=== PATIENT | male | born 1990 | race African-American/Black ===

== ENCOUNTER 2017-11-20 16:49 | Emergency (ER) | payer SELFPAY ==
[~2017-11-20] VITALS: Ht 172.7 cm; Wt 90.0 kg
[2017-11-20] MEDS ORDERED: IBUPROFEN 800 MG TABLET PO ONE (18:15)
[2017-11-20 20:04] VITALS: BP 117/70
== END 2017-11-20 20:21 | disposition home or self-care (01) ==
LOC: EMS 16:51
DX: S60.212A Contusion of left wrist, initial encounter (principal); S00.81XA Abrasion of other part of head, initial encounter; Z88.0 Allergy status to penicillin; V03.92XA Pedestrian on skateboard injured in collision with car, pick-up truck or van, unspecified whether traffic or nontraffic accident, initial encounter; Y93.51 Activity, roller skating (inline) and skateboarding; Y92.89 Other specified places as the place of occurrence of the external cause; Y99.8 Other external cause status
CPT/HCPCS: 70450; 72125; 99284